=== PATIENT | male | born 1940 | race Caucasian/White ===

== ENCOUNTER 2020-12-29 07:26 | Emergency (ER) | payer OTHER, BC ==
[~2020-12-29] VITALS: Ht 185.4 cm; Wt 112.5 kg
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
[2020-12-29] MEDS ORDERED: SEROQUEL 25 MG25 M1 PO (07:30)
[2020-12-29] MEDS ORDERED: BUSPIRONE HCL10 MG PO (07:31)
[2020-12-29] MEDS ORDERED: FLORANEX TABLE1 EACH PO (07:32)
[2020-12-29] MEDS ORDERED: 3-DAY VAGINAL C21 GM TOP (07:32)
[2020-12-29] MEDS ORDERED: DULOXETINE HCL60 MG PO (07:32)
[2020-12-29] MEDS ORDERED: ELIDEL CREAM 1%30 G1 TOP ×2 (07:32→08:01)
[2020-12-29] MEDS ORDERED: NAMENDA 10 MG T10 MG PO (07:33)
[2020-12-29] MEDS ORDERED: MELATONIN5 MG SUBLING (07:33)
[2020-12-29] MEDS ORDERED: METOLAZONE 2.52.5 M1 PO (07:33)
[2020-12-29] MEDS ORDERED: TOPROL XL25 MG PO (07:34)
[2020-12-29] MEDS ORDERED: KLOR-CON 10 ER10 MEQ PO (07:35)
[2020-12-29] MEDS ORDERED: MIRALAX119 GM PO (07:35)
[2020-12-29] MEDS ORDERED: OMEPRAZOLE 20 M20 M1 PO (07:35)
[2020-12-29] MEDS ORDERED: OYSTER SHELL C500 MG PO (07:35)
[2020-12-29] MEDS ORDERED: FLOMAX0.4 MG PO (07:36)
[2020-12-29] MEDS ORDERED: SENNA8.6 MG PO (07:36)
[2020-12-29] MEDS ORDERED: SIMVASTATIN80 MG PO (07:36)
[2020-12-29] MEDS ORDERED: SEROQUEL 25 MG25 MG PO (07:36)
[2020-12-29] MEDS ORDERED: XARELTO20 MG PO (07:38)
[2020-12-29] MEDS ORDERED: TRAZODONE HCL50 MG PO (07:38)
[2020-12-29] MEDS ORDERED: TYLENOL325 MG PO (07:44)
[2020-12-29 07:53] LABS: ABSOLUTE NEUTROPHILS 4.4 thou/uL (1.4-8.2); BASOPHILS 0.6 % (0.0-2.0); EOSINOPHILS 6.3 % (0.0-3.0); HEMOGLOBIN 14.6 gm/dL (14.0-18.0); LYMPHOCYTES 20.7 % (24.0-44.0); MCH 28.9 pg (26.0-34.0); MCHC 33.2 g/dL (28.0-37.0); MONOCYTES 8.2 % (1.0-8.0); PLATELET COUNT 146 thou/uL (150-400); POLYS 64.2 % (36.0-66.0); RBC 5.05 mil/uL (4.50-6.00); RDW 13.2 % (10.5-14.5); WBC 6.9 thou/uL (4.0-11.0)
[2020-12-29 07:57] LABS: ANION GAP 6 mmol/L (7-16); BUN 17 mg/dL (7-18); CALCIUM 9.2 mg/dL (8.5-10.1); CHLORIDE 103 mmol/L (98-107); CO2 33 mmol/L (21-32); CREATININE 1.1 mg/dL (0.7-1.3); GLUCOSE 128 mg/dL (74-106); POTASSIUM 3.3 mmol/L (3.5-5.1); SODIUM 142 mmol/L (136-145)
[2020-12-29] MEDS ORDERED: ALPRAZOLAM 0.50.5 M1 PO (07:58)
[2020-12-29] MEDS ORDERED: ALPRAZOLAM1 MG PO (07:59)
[2020-12-29] MEDS ORDERED: VOLTAREN GEL 1100 G1 TOP (08:00)
[2020-12-29] MEDS ORDERED: MILK OF MA400 MG/5 M PO (08:00)
[2020-12-29] MEDS ORDERED: LOPERAMIDE2 MG PO (08:00)
[2020-12-29 08:04] LABS: URINE BILIRUBIN NEGATIVE (Negative); URINE BLOOD NEGATIVE (Negative); URINE CLARITY CLEAR; URINE COLOR YELLOW; URINE GLUCOSE-RANDOM* NEGATIVE (Negative); URINE KETONES NEGATIVE (Negative); URINE LEUKOCYTES-REFLEX NEGATIVE (Negative); URINE NITRITE-REFLEX NEGATIVE (Negative); URINE PROTEIN (DIPSTICK) NEGATIVE (Negative); URINE SPECIFIC GRAVITY 1.015 (1.005-1.035); URINE UROBILINOGEN 0.2 E.U./dl (0.2-1.0)
[2020-12-29 08:06] LABS: ALBUMIN 3.6 g/dL (3.4-5.0); SGOT 17 U/L (15-37); SGPT 21 U/L (30-65); TOTAL BILIRUBIN 0.7 mg/dL (0.2-1.0); TROPONIN-I <0.06 ng/mL (<0.06)
[2020-12-29 12:47] VITALS: BP 131/72
== END 2020-12-29 13:00 | disposition admitted as inpatient to this hospital (09) ==
LOC: ER 07:26
PROVIDERS: Emergency Medicine
DX: U07.1 COVID-19 (principal); F91.1 Conduct disorder, childhood-onset type; F03.90 Unspecified dementia, unspecified severity, without behavioral disturbance, psychotic disturbance, mood disturbance, and anxiety; Z79.899 Other long term (current) drug therapy

== ENCOUNTER 2020-12-29 13:09 | Inpatient (IN) | payer OTHER, BC ==
[~2020-12-29] VITALS: Ht 185.4 cm; Wt 108.5 kg
[~2020-12-29 13:09] MED LIST: 3-DAY VAGINAL C21 GM TOP; ALPRAZOLAM 0.50.5 M1 PO; ALPRAZOLAM1 MG PO; BUSPIRONE HCL10 MG PO; DULOXETINE HCL60 MG PO; ELIDEL CREAM 1%30 G1 TOP; FLOMAX0.4 MG PO; FLORANEX TABLE1 EACH PO; KLOR-CON 10 ER10 MEQ PO; LOPERAMIDE2 MG PO; MELATONIN5 MG SUBLING; METOLAZONE 2.52.5 M1 PO; MILK OF MA400 MG/5 M PO; MIRALAX119 GM PO; NAMENDA 10 MG T10 MG PO; OMEPRAZOLE 20 M20 M1 PO; OYSTER SHELL C500 MG PO; SENNA8.6 MG PO; SEROQUEL 25 MG25 M1 PO; SEROQUEL 25 MG25 MG PO; SIMVASTATIN80 MG PO; TOPROL XL25 MG PO; TRAZODONE HCL50 MG PO; TYLENOL325 MG PO; VOLTAREN GEL 1100 G1 TOP; XARELTO20 MG PO
[2020-12-29 13:30] VITALS: BP 134/76
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
[2020-12-29 19:55] VITALS: BP 120/78
[2020-12-29 21:05] VITALS: BP 120/78
[2020-12-29 21:33] VITALS: BP 120/78
--- NOTE | 2020-12-29 23:22 | NUR ---
2320 RESUMMED CARE FROM DAY SHIFT THIS EVENING PATIENT IN DAY ROOM SITTING QUIET. PATIENT ALERT ORIENTED TO SELF ONLY PATIENT LET ME DO ASSESSMENT THIS EVENING. PATIENTS ABDOMEN SOFT BOWEL SOUNDS PRESENT PATIENTS LUNGS CLEAR. PATIENT UNABLE TO ANSWER QUESTIONS ABOUT SI/HI/AH/VH AT PRESENT DUE TO COGNITIVE DO. PATIENT TOOK HIS MEDICATION CRUSHED IN APPLESAUCE, PATIENT TOOK MY HAND AND I TOOK PATIENT TO ROOM FOR BED. PATIENT CAME BACK TO DAY ROOM AND I PUT HIM IN A ADRIANNE CHAIR AND PUT HIS FEET UP AND PUT A BLANKET OVER HIM, PATIENT SLEPT IN DAY ROOM. PATIENT HAS NOT DISPLAYED AND BEHAVIORS ON THIS SHIFT. WILL CONTINUE TO MONITOR PATIENT FOR BEHAVIORS AND SAFETY.
--- NOTE | 2020-12-30 09:29 | NUR ---
FRANCISCO JAVIER contacted [facility] at [phone]. No answer on any lines. FRANCISCO JAVIER left a message for the director. SW team will continue to follow pt during his stay on this unit.
[2020-12-30 10:02] VITALS: BP 135/85
--- NOTE | 2020-12-30 10:04 | NUR ---
Nutrition: Pt admit to [facility] unit with major neurocognitive disorder with behavioral disturbance. Received new admission consult. PMH: advanced dementia, HLD, HTN, afib, GERD. Pt confused. Meds/labs reviewed. No weight hx however BMI 30, obesity class 1. K-3.3, replacing. Good intake with 95-100% of meals documented so far. Consider low nutrition risk.
--- NOTE | 2020-12-30 13:00 | NUR ---
Assumed pt care at 0700. pt was oriented to self. PT WAS CALM with care. unable to answer si/hi question due to cognitive disorder. During Assessment pt would not sit still. pt pace the unit with a steady gait pt took meds crushed with pudding, no difficulty noted. Had a bowel movement. AT time there is no sign of si/hi noted. no sign of acute distress or pain.pt have been incontinent twice. Will continue to monitor.
[2020-12-30 20:15] VITALS: BP 142/79
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
[2020-12-31 09:16] VITALS: BP 116/87
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
--- NOTE | 2020-12-31 15:36 | NUR ---
Alert and orientated to name only. Restless, regular, steady gait. Denies SI/HI. No speech/behavior suggestive of SI/HI. Directable. Confused speech. Participating in groups. Initially spit out meds when they were crushed, took whole with H2O without difficulty on second approach and subsequent med passes. Breath sounds clear. Reg HR auscultated. Color pink with brisk capillary refill and palpable peripheral pulses. +3 non pitting edema in lower extremities. Incontinent and continent of yellow urine per brief and toilet. Large,soft brown stool. Active bowel sounds over soft, rounded abdomen. Currently in day room with peers without s/o distress.
[2020-12-31 20:14] VITALS: BP 123/86
[2020-12-31 20:17] VITALS: BP 123/86
[2020-12-31 21:02] VITALS: BP 123/86
--- NOTE | 2020-12-31 23:33 | NUR ---
2330 RESUMMED CARE FROM OVERNIGHT SHIFT THIS EVENING, PATIENT IN DAY ROOM WALKING AROUND. PATIENT ALERT ORIENTED TO SELF ONLY PATIENT UNABLE TO TELL ME ABOUT SI/HI/AH/VH AT PRESENT. PATIENTS ABDOMEN SOFT BOWEL SOUNDS PRESENT PATIENT LUNGS CLEAR. PATIENT TOOK MEDICATION WITHOUT INCIDENCE NO BEHAVIORS THIS SHIFT. WILL CONTINUE TO MONITOR PATIENT FOR SAFETY AND BEHAVIORS.
[2021-01-01 05:36] LABS: CALCIUM 9.5 mg/dL (8.5-10.1); CREATININE 1.2 mg/dL (0.7-1.3); POTASSIUM 3.5 mmol/L (3.5-5.1)
--- NOTE | 2021-01-01 06:36 | NUR ---
0630 NEW ADMIT HERE FROM THE [facility] FOR HITTING STAFF, UPON ARRIVING ON THE UNIT; PATIENT CALM COOPERATIVE. ED STATES SHE WAS GIVEN ATIVAN 1 MG AT 0012 THIS AM FOR AGITATION. PATIENT HAS A HISTORY OF ALCOHOL ABUSE, HTN,SEIZURES AND ROTATOR CUFF REPAIR. PATIENTS ABDOMEN SOFT BOWEL SOUNDS PRESENT PATIENTS LUNGS CLEAR. PATIENT IS ACCEPTING OF THE ADMISSION AND DID SIGN HER PAPERWORK. PATIENT IS ALERT ORIENTED TIMES 2 WILL CONTINUE TO MONITOR PATIENT FOR SAFETY AND BEHAVIORS.
--- NOTE | 2021-01-01 10:57 | NUR ---
ASSUMED CARE AT 0700 THIS MORNING. PT. SITTING IN RECLINING CHAIR IN THE DINING ROOM. HE WAS SITTING QUIETLY UNTIL STAFF ATTEMPTED TO WORK WITH HIM. HE THEN GOT UP OUT OF THE CHAIR, WALKING AWAY. STAFF CRUSHED HIS MEDICATIONS AND GAVE THEM IN PUDDING. HE NEEDED A LOT OF PERSUASION TO TAKE THE MEDICATIONS. HE DID SO, THOUGH. HE THEN SEEMED TO CALM DOWN AND RELAX IN THE CHAIR THE MEDICATIONS TOOK EFFECT. HE ATE SOME OF HIS BREAKFAST AT THE TIME. RT ATTEMPTED TO TALK TO THE PT., BUT HE WAS NOT MAKING ANY SENSE, TALKING IN 1/2 SENTENCES AND WORD SALAD.
[2021-01-01 19:12] VITALS: BP 129/91
--- NOTE | 2021-01-02 04:31 | NUR ---
01-01-21 CARE TRANSFERRED 1900 OBSERVED PT WALKING HALLWAYS. PT AAOX1, VSS, RR EVEN AND NONLABORED ON RA. PT DENIES PAIN AND SI/HI ZERO, NO SELF HARM/HARMING OTHERS BEHAVIORS OBSERVED. HAVE OBSERVED PT HAVING POOR PHYSICIAL BARRIERS. PT PRESENTS CONFUSED, BUT HAS REMAINED CALM AND COOPERATIVE THROUGHOUT NURSING ASSESSMENT AND HAS BEEN EASILY REDIRECTED BUT NECESSARY OFTEN.
[2021-01-02 10:45] VITALS: BP 112/72
--- NOTE | 2021-01-02 10:50 | NUR ---
FRANCISCO JAVIER spoke with Kimberly the DON for [facility] at [phone] and provided to her a verbal update. Kimberly gave the fax number of [phone]. FRANCISCO JAVIER team faxed updates to [facility]. FRANCISCO JAVIER team will continue to follow pt during his stay on this unit.
[2021-01-02 11:45] VITALS: BP 112/72
--- NOTE | 2021-01-02 14:42 | NUR ---
SW team asked pt orientation questions. She answered all answers correctly except for what year it was and who is president; she believes Ifeanyi is still president. She also has delusions concerning Trump. SW team administerd a SLUMS assessment with pt. She scored a 16/30. FRANCISCO JAVIER team will continue to follow pt during her stay on this unit.
--- NOTE | 2021-01-03 03:46 | NUR ---
01-03-16 CARE TRANSFERRED 1900 OBSERVED PT WALKING HALLS, PT WANDERED INTO PT ROOM AND WAS GOING AFTER PT IN BED, RN BLOCKED AND CALLED FOR ASSISTANCE, WHILE PT WAS STRUGGLING TO GET AT PT SITTING IN HER BED. PT WAS TRYING TO THROW THIS LOOM STOP CHECKER OUT OF THE WAY, [facility] STAFF ARRIVED AND ASSISTED WITH GETTING PT OUT OF FEMALE PT ROOM; DIRECTED ONE STAFF MEMBER TO CALL SECURITY AND SECURITY ARRIVED. HCP CONTACTED AND ORDERS RECEIVED X1NOW, PT WAS ASSISTED INTO RECLINER BY SECURITY STAFF. LATER PT AAOX1, VSS, RR EVEN AND NONLABORED ON RA, PT HTN MEDICATION HELD R/T B/P 102/68 AND MEDICATION THAT ADMIN EARLIER. LATER PT BACK UP WANDERING HALLWAY, REDIRECTED TO BED, LATER NOTED PT RESTING IN BED WITH HEAD AT FOOT OF BED. LATER PT SITTING ON EDGE OF BED, PT WAS PLACED IN RECLINER AND BROUGHT TO DAY ROOM. LATER NOTED PT RESTING WITH EYES CLOSED, ZERO S/S OF ACUTE DISTRESS NOTED, PT WILL CONTINUE TO BE MONITOR PER [facility] PROTOCOL.
--- NOTE | 2021-01-03 13:55 | NUR ---
PATIENT WAS IN DAYROOM SITTING, ASLEEP THIS MORNING WHEN CARE ASSUMED. PATIENT DID WAKE UP FOR BREAKFAST, HAD A FEW BITES, TOOK ALL MEDS IN [place], WELL TOLERATED. PATIENT IS ALERT, FORGETFUL, CONFUSED, WANDERS, BUT REDIRECTABLE. PATIENT CONSUMMED ABOUT 75% OF LUNCH WITH CUE FROM STAFF. PATIENT REQUIRES ASSIST OF STAFF TO COMPLETE ADL, INCLUDING FEEDING. INCONTINENT CARE PROVIDED PER STAFF. PATIENT DENIES SUICIDAL IDEATION, NOT ABLE TO APPROPRIATELY RESPOND TO FURTHER ASSESSMENT QUESTIONS DUE TO COGNITIVE IMPAIREMENT. AFFECT IS FLAT/BLUNTED, MOOD IS CALM. NO AGGRESSION OR AGITATION NOTED AT THIS TIME, WILL CONTINUE TO REDIRECT, AND MONITOR FOR SAFETY.
[2021-01-03 19:49] VITALS: BP 142/78
--- NOTE | 2021-01-04 04:05 | NUR ---
01-04-21 CARE TRANSFERRED 1914 OBSERVED PT WALKING AROUND DAY ROOM. PT AAOX1, VSS, RR EVEN AND NONLABORED ON RA, PT DENIES PAIN. NO SELF HARM BEHAVIORS NOTED, AND NO HARMING OTHERS, PT HAS POOR PHYSICAL BOUNDIES. PT EASILY REDIRECTED. ZERO S/S OF ACUTE DISTRESS NOTED, PT WILL CONTINUE TO BE MONITOR PER [facility] PROTOCOL.
[2021-01-04 09:50] VITALS: BP 141/85
--- NOTE | 2021-01-04 11:54 | NUR ---
PATIENT DECLINE EKG, LAYED DOWN, THEN BECAME COMBATIVE, STAFF STATES WILL BE BACK TO SEE IF ABLE TO DO IT LATER.
--- NOTE | 2021-01-05 02:22 | NUR ---
Assumed care of pt at 1900. Pt up in dining room at start of shift. Pt is ambulatory. Pt is A&O to self. Pt wanders and has poor personal space boundaries at times, but is redirectable. Pt resistive and refused HS vitals to be taken. Pt complaint with HS scheduled medications and took them crushed in pudding. Pt is incontinent and wears brief. Pt needs assistance x 1 with ADLs & was redirected x 1 from urinating on floor in dining room. Pt last BM was on 01.04.21. Pt denied any pain and shows no physical s/s of distress. Pt is on 12 min checks for safety. Will continue to monitor for any changes in behavior/mood.
[2021-01-05 09:13] VITALS: BP 122/70
[2021-01-05 09:36] VITALS: BP 122/70
--- NOTE | 2021-01-05 10:17 | NUR ---
1010 RESUMMED CARE FROM OVERNIGHT SHIFT THIS AM, PATIENT IN DAY ROOM QUIET IN CARE. PATIENT ATE BREAKFAST SPIT SOME OF MEDICATION OUT, PATIENT ALERT ORIENTED TO SELF ONLY. PATIENT HAS NEURO COGNITIVE DO AND CANNOT TELL ME ABOUT SI/HI/AH/VH AT PRESENT. PATIENTS ABDOMEN SOFT BOWEL SOUNDS PRESENT PATIENTS LUNGS CLEAR. PATIENT IS VERY INTRUSIVE WITH OTHER PATIENT TOUCHING THEM AND IN OTHER PATIENTS FACE. I CAME AND TOOK PATIENTS HAND AND ASKED HIM TO SIT ON THE COUCH. PATIENT IS REDIRECTABLE WILL CONTINUE TO MONITOR PATIENT FOR SAFETY AND BEHAVIORS.
--- NOTE | 2021-01-05 11:09 | NUR ---
SW faxed updates for pt to [facility]. SW reviewed pt chart and saw that he is still having issues with being redirected when he is intrusive with female peers. SW team will continue to follow pt during his stay on this unit.
--- NOTE | 2021-01-05 14:04 | NUR ---
RT Progress Note- Pt has been present in the milieu but unable to productively engage d/t cognition and poor attention/concentration. Pt wanders the unit much of the day and is only able to remain in one place for a short amount of time before wandering again. Pt has also displayed poor social boundaries when interacting with other pts. HOUSING GRANT ANALYST will continue to encourage Martin's participation and look for improvement in attention.
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
[2021-01-06 09:26] VITALS: BP 136/86
[2021-01-06 10:56] VITALS: BP 136/86
--- NOTE | 2021-01-06 12:02 | NUR ---
FRANCISCO JAVIER and Dr. Madden spoke with pt's Jeri and provided to her an update on pt. SW team will continue to follow pt during his stay on this unit.
--- NOTE | 2021-01-06 12:16 | NUR ---
1200 RESUMMED CARE FROM OVERNIGHT SHIFT THIS AM, PATIENT IN DAYROOM ASLEEP. PATIENT HAD TWO PRN'S LAST NIGHT FOR AGGRESSION; PATIENT UNABLE TO TELL ME ABOUT SI/HI/AH/VH AT PRESENT. PATIENTS ABDOMEN SOFT BOWEL SOUNDS PRESENT PATIENTS LUNGS CLEAR. PATIENT CALM SLEEPY LYING IN ADRIANNE CHAIR QUIET SLEEPING OFF AND ON. PATIENT ORIENTED TO SELF ONLY WILL CONTINUE YO MONITOR PATIENT FOR SAFETY AND BEHAVIORS.
[2021-01-06 20:35] VITALS: BP 142/91
--- NOTE | 2021-01-07 06:43 | NUR ---
PT LESS AGITATED THIS SHIFT RESTED WELL AFTER TAKING MEDICATION , PT SLEPT WELL THROUGHOUT ROUNDING . PT REMAIN CONFUSED WITH RAMBLING SPEECH.
[2021-01-07 08:25] VITALS: BP 123/74
--- NOTE | 2021-01-07 09:35 | NUR ---
0700 ASSUMED CARE OF PATIENT, PATIENT NOTED IN DAYROOM WANDERING AT THAT TIME. PATIENTTAKES FEW BITES OF BREAKFAST WITH HELP. MEDICATIONS GIVEN CRUSHED IN APPLESAUCE WITHOUT DIFFICULTY. SLEEPS OFF AND ON IN GERICHAIR. PATIENT CALM AND QUIEST AT THIS TIME. VS BP-123/74 P-103 R-15 T-97.0 MICHAEL- 96%.
[2021-01-07 21:50] VITALS: BP 123/74
--- NOTE | 2021-01-08 01:47 | NUR ---
Assumed care on 01/07/21 @ 1900, ambulating ad michael throughout the mileu, touches peers and staff, redirectable, but constantly walking up to peers and touching them. HRRR, Lungs CTA, ABD N bowel sounds with a round abdomen. Takes meds crushed in pudding and ice cream. Sleeping in hernando chair in the day room. Incontinent of bladder, incontinent care provided when needed. Will continue to assess for safety and comfort.
[2021-01-08 09:44] VITALS: BP 127/97
--- NOTE | 2021-01-08 10:14 | NUR ---
INTRUSIVE WITH PEERS THIS AM AND DIFFICULT TO REDIRECT. INCREASED AGITATION AND INTRUSIVE BEHAVIOR AT MEALTIME-APPROACHING PEERS AT BREAKFAST TABLE AND GRABBING FOOD AND BEVERAGES OFF OF THERE TRAYS-REFUSING TO GIVE OTHERS BELONGINGS BACK TO STAFF AND BECOMES COMBATIVE WITH CENTRAL SUPPLY WORKER. GAIT IS STEADY WITHOUT ASSISITVE DEVICES. ORIENTED TO NAME ONLY. CONVERSATION INCOHERENT-SPEECH RAMBLING AND DISORGANIZED. OVERALL MOOD/AFFECT IS IRRITABLE/FRUSTRATED WHICH INCREASES STIMULI IN MILLEU INCREASES
--- NOTE | 2021-01-08 15:55 | NUR ---
SW faxed updates to nursing facility.
--- NOTE | 2021-01-09 04:24 | NUR ---
Assumed care for pt at 1900. Pt up in dining room and walking about the unit at time of shift change. Pt had to be redirected several times during earlier part of evening, as he kept picking up and taking other pt's belongings, snacks/drinks, and roaming into other pt rooms. Pt refused for HS vitals to be taken. Pt took scheduled medications crushed in vanilla ice cream, although he was resistive. Pt alert to self. Pt last BM was 01/08/21. Pt is incontient of bladder. Pt cooperative with HS nursing assessment, but unable to answer most simple and yes/no questions. Pt did deny having any pain at time of assessment. Pt is ambulatory and is on every 12 minute checks/rounds for safety. Pt rested during night in dining room in [facility] and appeared to be sleeping. Upon assessment it was noted that pts right ankle was swollen. Pt feet where elevated to help to try to reduce any dependent edema. Pt edema is +2. Will continue to monitor for any changes in mood/depression.
--- NOTE | 2021-01-09 08:49 | NUR ---
Nutrition: F/u on pt w/ major neurocognitive disorder w/ hx of dementia. Wt up 9 lb from admit, BMI indicates obesity. Intake avg 75% or more. No recent metabolic labs. Lasix, potassium and other meds reviewed. Continues at low nutrition risk.
[2021-01-09 10:14] VITALS: BP 100/59
[2021-01-09 11:47] VITALS: BP 100/59
--- NOTE | 2021-01-09 14:07 | NUR ---
1405 RESUMMED CARE FROM OVERNIGHT SHIFT THIS AM, PATIENT IN DAY ROOM WALKING AROUND. PATIENT UNABLE TO TELL ME ABOUT SI/HI/AH/VH AT PRESENT DUE TO COGNITIVE DO. PATIENT IS ALERT ORIENTED TO SELF ONLY PATIENT CALM HAS SOME INTRUSIVE BEHAVIORS. PATIENT LIKES TO TOUCH ON OTHER PATIENTS, PATIENTS ABDOMEN SOFT BOWEL SOUNDS PRESENT. PATIENTS LUNGS IS CLEAR PATIENT IS CONFUSED WILL CONTINUE TO MONITOR PATIENT FOR SAFETY AND BEHAVIORS.
--- NOTE | 2021-01-10 01:47 | NUR ---
ASSESSMENT: PT IS ALERT AND ORIENT TIMES ONE. ROAMS AROUND UNIT WITHOUT PURPOSE. IMPULSIVE, DOESN'T FOLLOW COMMANDS WELL. PLEASANT AND TRIES TO COMPLY SOME TIMES. VSS, AFEBRILE. INCONT TO BLADDER. IN ADRIANNE CHAIR WITH LAP YAMEL. NO AGGRESSION DISPLAYED THIS SHIFT. PT INDICATED THAT HIS FEET HURT, LEFT FOOT SWOLLEN AND READ. GREAT TOE NAIL ELONGATED. SLOW PROGRESS TOWARDS DC GOALS. WILL CONTINUE TO MONITOR.
[2021-01-10 05:37] LABS: HEMATOCRIT 40.4 % (42.0-52.0); HEMOGLOBIN 13.7 gm/dL (14.0-18.0); MCH 28.8 pg (26.0-34.0); MCHC 33.8 g/dL (28.0-37.0); MCV 85.2 fL (80.0-100.0); RBC 4.74 mil/uL (4.50-6.00); RDW 13.2 % (10.5-14.5); WBC 9.3 thou/uL (4.0-11.0)
[2021-01-10 06:20] LABS: CALCIUM 9.1 mg/dL (8.5-10.1); POTASSIUM 3.1 mmol/L (3.5-5.1)
[2021-01-10 07:55] VITALS: BP 117/69
--- NOTE | 2021-01-10 09:22 | NUR ---
PATIENT APPROACHED WITH MORNING MEDICATIONS CRUSHED IN APPLESAUCE. REFUSED MEDICATIONS AFTER SEVERAL ATTEMPTS AT ENCOURAGEMENT. WILL CONTINUE TO TRY TO ENTICE TO TAKE.
--- NOTE | 2021-01-10 10:42 | NUR ---
FRANCISCO JAVIER contacted Kimberly (DON) and Jesus Alberto (president) of [facility] to provide an update on pt. No answer. FRANCISCO JAVIER left a msg on both voice mails. SW team will continue to follow pt during his stay on this unit.
--- NOTE | 2021-01-11 02:40 | NUR ---
ASSESSMENT: PT WAS SLOWER PACED THIS EVENING POST RECEIVING PRN SEDATIVES. PT WANTS TO DO EVERYTHING HIMSELF. FREQUENT URINATION, INCONT. SLEPT IN THE ADRIANNE CHAIR ALL NIGHT. VSS, AFEBRILE. DENIES PAIN. SLOW PROGRESS TOWARDS DC GOALS, WILL CONTINUE TO MONITOR.
[2021-01-11 09:04] VITALS: BP 119/64
--- NOTE | 2021-01-11 11:47 | NUR ---
FRANCISCO JAVIER faxed updates to pt to [facility]. SW team will continue to follow pt during his stay on this unit.
--- NOTE | 2021-01-11 17:59 | NUR ---
0700 ASSUMED CARE OF PATIENT. PATIENT UP AMB WITH STEADY GAIT IN BALTAZAR. PATIENT FALLS ASLEEP OFF AND ON IN CHAIR. ASSISTED WITH BREAKFAST. MEDICATIONS GIVEN CRUSHED IN ICE CREAM WITHOUT DIFFICULTY. PATIENT ORIENTED TO SELF. BS ACTIVE. ASSISTED TO BR, PATIENT INCONTINENT. AT TIMES PATIENT REMOVES SHIRT AND WILL NOT LEAVE ON. MUMBLES AT TIMES WITH WORD SALAD. PATIENT EASILY REDIRECTABLE. WANDERS IN OTHER ROOMS AT TIMES. WILL CONTINUE TO OBSERVE
--- NOTE | 2021-01-11 23:56 | NUR ---
PT ASSESSMENT COMPLETED AND VSS. MEDS GIVEN A ORDERED CRUSHED IN ICE CREAM. WELL TOLERATED. UP WALKING AROUND IN THE DAY ROOM. STEADY. PT TIRED AND SLEEPING IN CHAIR IN THE DAY ROOM. OBSERVED FREQUENTLY. INCONTINENT. PT SPEECH HARD TO UNDERSTAND. PT MUMBLES. PT CALM AND SLEEPING THIS EVENING. WILL CONTINUE TO MONITOR FREQUENTLY.
[2021-01-12 09:16] VITALS: BP 124/66
[2021-01-12 09:36] VITALS: BP 124/66
--- NOTE | 2021-01-12 12:34 | NUR ---
1230 RESUMMED CARE FROM OVERNIGHT SHIFT THIS AM, PATIENT IN DAY ROOM QUIET IN ADRIANNE CHAIR. PATIENT ALERT TO SELF ONLY PATIENT TOOK MEDICATION CRUSHED IN ICE CREAM. PATIENT IS UNABLE TO TELL ME ABOUT SI/HI/AH/VH AT PRESENT DUE TO COGNITIVE DISORDER. PATIENTS ABDOMEN SOFT BOWEL SOUNDS PRESENT PATIENTS LUNGS CLEAR. PATIENT WANDERS AROUND THE UNIT POOR BOUNDARIES GOES IN PEOPLES ROOM AND TAKES THINGS OUT OF ROOM. PATIENT TOUCHES OTHER PATIENTS HE IS MOST TIMES REDIRECTABLE. WILL CONTINUE TO MONITOR PATIENT FOR SAFETY AND BEHAVIORS.
--- NOTE | 2021-01-12 12:37 | NUR ---
RT Progress Note- Martin's participation in both the milieu and recreation therapy groups is very minimal at this time. Martin continues to wander about the unit and is very difficult to redirect to a sitting position in group. He has been present in few groups when seated directly next to nursing staff who assist him in remaining focused. When present he is passive in participation. GREENBELT will continue to encourage his participation.
[2021-01-12 19:15] VITALS: BP 119/63
[2021-01-12 20:18] VITALS: BP 119/63
--- NOTE | 2021-01-12 20:56 | NUR ---
2044 RESUMMED CARE FROM DAY SHIFT THIS PM, PATIENT IN DAY ROOM WANDERING AROUND. PATIENT ALERT ORIENTED TO SELF PATIENT STILL HAS POOR BOUNDARIES GOING IN PATIENTS ROOMS. PATIENT ALSO TOUCHES OTHER PATIENTS AND HAS TO BE REDIRECTED TO NOT TOUCH OTHER PATIENTS. PATIENT IS UNABLE TO TELL ME ABOUT SI/HI/AH/VH AT PRESENT DUE TO DEMENTIA. PATIENTS ABDOMEN SOFT BOWEL SOUNDS PRESENT, PATIENTS LUNGS CLEAR. PATIENT TOOK MEDICATION CRUSHED IN PUDDING WITHOUT INCIDENCE. WILL CONTINUE TO MONITOR PATIENT FOR SAFETY AND BEHAVIORS.
--- NOTE | 2021-01-13 03:25 | NUR ---
ASSESSMENT: PT IN ADRIANNE CHAIR DURING THIS SHIFT EXCEPT TO USE THE BR IN ROOM. PT SLEPT IN ADRIANNE CHAIR IN THE DAY ROOM. VSS, AFEBRILE. DENIES PAIN. DID NOT WONDER AROUND UNIT THUS FAR. DENIES PAIN. SWELLING DECREASING IN TOMY FEET. SLOW PROGRESS TOWARDS DC GOALS. WILL CONTINUE TO MONITOR.
--- NOTE | 2021-01-13 09:47 | NUR ---
HAS BEEN VISIBLE IN DAYROOM PACING AND WALKING NON-STOP SO FAR THIS AM-ABLE TO BE COAXED TO SIT BRIEFLY TO EAT BUT IS HARD TO REDIRECT DOES NOT FOLLOW VERBAL COMMANDS-WILL OCCASSIONALY FOLLOW GESTURES OR LIGHT TOUCH ON ARM BUT WILL AT TIMES HAVE INCREASED AGITATION WITH PHYSICAL REDIRECT. WILL SPEAK TO STAFF/PEERS BUT CONVERSATION IS FRAGMENTED/INCOHERENT. IS NOTED TO HAVE FACIAL GRIMACING AND WINCING FREQYENTLY RUBBING RIGHT KNEE/LEG-FEETT WITH HARD TENSE NONPITTING PEDAL EDEMA NOTED. RESISTIVE WITH ELEVATING FEET OR LYING DOWN ON BED DESPITE MULTIPLE PROMPTS. INTRUSIVE WITH PEERS AND STAFF GRABBING OTHERS FOOD/BEVARGES AND CONSUMING THEM-ATTEMPTING TO GRAB ITEMS OFF OF NURSING PORTABLE COMPUTER. RUBBING THE BACK AND SHOULDERS OF FEMALE PATIENTS DESPITE MULTIPLE REQUESTS TO NOT TOUCH ANYONE. GAIT SLOW BUT STEADY-
[2021-01-13 09:58] VITALS: BP 107/67
--- NOTE | 2021-01-13 14:04 | NUR ---
FRANCISCO JAVIER contacted Kimberly with [facility] to arrange d/c for pt on . No answer. FRANCISCO JAVIER left a msg. SW team will continue to follow pt during his stay on this unit.
[2021-01-13 19:30] VITALS: BP 122/76
--- NOTE | 2021-01-13 21:38 | NUR ---
Assumed care on 01/13/21 @ 1900, ambulating throughout the mileu. Took meds crushed in ice cream. ambulates with a somewhat steady gait. A&Ox 1 only. Confusion noted. Will continue to monitor for safety and comfort as per unit protocol.
[2021-01-13 22:35] VITALS: BP 122/76
[2021-01-14 09:09] VITALS: BP 101/60
[2021-01-14 09:46] VITALS: BP 101/60
--- NOTE | 2021-01-14 11:42 | NUR ---
1140 RESUMMED CARE FROM OVERNIGHT SHIFT THIS AM, PATIENT IN DAY ROOM QUIET. PATIENT ALERT ORIENTED TO SELF ONLY PATIENT CALM COOPERATIVE EASY TO REDIRECT. PATIENTS ABDOMEN SOFT BOWEL SOUNDS PRESENT PATIENTS LUNGS CLEAR; PATIENT UNABLE TO TELL ME ABOUT SI/HI/AH/VH AT PRESENT. PATIENT HAS DEMENTIA AND IS HAS CONFUSION. WILL CONTINUE TO MONITOR PATIENT FOR SAFETY AND BEHAVIORS.
[2021-01-14 20:04] VITALS: BP 130/87
[2021-01-14 20:05] VITALS: BP 130/87
[2021-01-14 20:07] VITALS: BP 130/87
[2021-01-14 21:45] VITALS: BP 130/87
--- NOTE | 2021-01-14 22:41 | NUR ---
Assumed care on 01/14/21 @ 1900, ambulating through the mileu. Inserts himself in other residents personal space, touching people and their personal possessions and food. Redirectable, however must be constantly supervised and redirected for his safety and the safety of patients and staff in the [facility]. Accepted meds crushed in ice cream only if handed the cup of ice cream and he fed himself. Agitated with redirection and given an IM of [place] @ 2130. Allowed himself to be seated in a hernando chair for about 2 hours, then got out of the chair and ambulated around the day room handling blankets, furniture and touching the people who were still awake. Will continue to monitor as per unit protocol.
[2021-01-15 06:08] LABS: HEMATOCRIT 40.1 % (42.0-52.0); HEMOGLOBIN 13.8 gm/dL (14.0-18.0); MCH 29.5 pg (26.0-34.0); MCHC 34.4 g/dL (28.0-37.0); MCV 85.6 fL (80.0-100.0); RBC 4.69 mil/uL (4.50-6.00); RDW 13.2 % (10.5-14.5); WBC 7.5 thou/uL (4.0-11.0)
[2021-01-15 06:27] LABS: CALCIUM 9.5 mg/dL (8.5-10.1); CREATININE 1.1 mg/dL (0.7-1.3); MAGNESIUM 1.8 mg/dL (1.8-2.4); POTASSIUM 3.3 mmol/L (3.5-5.1)
[2021-01-15 08:18] VITALS: BP 109/78
--- NOTE | 2021-01-15 10:40 | NUR ---
DID ASSIST IN FEEDING SELF BREAKFAST AT APPROX 1015-MORE AWAKE/ALERT/TALKATIVE AT THIS TIME- ASSISTED TO BATHROOM AND COMPLIENT WITH INCONTINENT CARE-CONVERSATION WORD SALAD WITH ONLY OCCASSIONAL COHERENT VERBALIZATION. DOES APPEAR CALM/RELAXED-SPONTANOUES SMILING. NO NOTED S/S OF OR REPORTED PAIN/DISCPOMFORT. CONTINUES TO BE IMPULSIVE ATTEMPTING TO GET UP ON OWN-HIGH FALLS RISK
[2021-01-15 20:00] VITALS: BP 138/79
[2021-01-16 00:25] VITALS: BP 113/78
--- NOTE | 2021-01-16 02:36 | NUR ---
ASSESSMENT: PT REMAIN ALERT AND ORIENT TIMES ONE. PT WAS DROWSY TONIGHT AND SLEPT MOST OF THE SHIFT IN THE CHAIR. VSS, AFEBRILE. NO PRN'S WERE GIVEN. DENIES PAIN. UNABLE TO VOICE DENIAL OF SI/HI. NOT INTRUSIVE TONIGHT WHEN AMBULATING. INCONT. SLOW PROGRESS TOWARDS DC GOALS. WILL CONTINUE TO MONITOR.
--- NOTE | 2021-01-16 10:40 | NUR ---
Nutrition F/u: continues w/ confusion, dementia, needs redirection. Wt stable. Intake somewhat more variable recently but avg past several days 75% or more. BUN high, no recent albumin. Lasix and other meds reviewed. Continues at low risk.
--- NOTE | 2021-01-16 11:13 | NUR ---
SW team faxed updates to [facility] for pt. SW team will continue to follow pt during his stay on this unit.
--- NOTE | 2021-01-16 19:20 | NUR ---
AMB WITH STEADY GAIT PACING IN BALTAZAR. CONTINUES TO REMOVE SHIRT OFF AND ON THROUGHOUT DAY. EASILY REDIRECTABLE. MEDICATIONS TAKEN CRUSHED IN ICE CREAM. LS CLEAR, BS ACTIVE. SLEPT OFF AND ON IN CHAIR.
[2021-01-16 19:50] VITALS: BP 138/79
--- NOTE | 2021-01-17 03:31 | NUR ---
PATIENT WAS UP WALKING AROUND IN DINING ROOM THIS EVENING WITHOUT A SHIRT. DAYSHIFT SLITTER AND REWINDER MACHINE OPERATOR'S WHEN ASKED SAID HE WOULDN'T KEEP ONE ON. EVENTUALLY, PATIENT ALLOWED SLITTER AND REWINDER MACHINE OPERATOR TO PUT A GOWN ON HIM. HE WANDERED DOWN THE BALTAZAR TO THE LAUNDRY ROOM AND WALKED IN. APPARENTLY, THE DOOR DID NOT TOTALLY LATCH AFTER LAST PERSON LEFT. REDIRECTED PATIENT TO THE DINING ROOM TO GIVE HIM HIS ICE CREAM WITH HIS MEDS CRUSHED IN IT. PATIENT SAT AND ATE ALL THE ICECREAM AND FELL ASLEEP SHORTLY AFTER, AFTER WALKING TO ANOTHER CHAIR AND SITTING DOWN TO DOZE OFF. PATIENT WAS ASSISTED TO HIS ROOM AND INCONTINENCE CARES DOES DONE AND PATIENT PLACED IN BED. PATIENT HAS BEEN CALM, COOPERATIVE AND EASILY REDIRECTED. HIS BED IS IN LOW POSITION AND BED ALARM IS ON. WILL CONTINUE TO MONITOR.
[2021-01-17 05:52] LABS: CALCIUM 9.6 mg/dL (8.5-10.1); CREATININE 1.3 mg/dL (0.7-1.3); POTASSIUM 3.5 mmol/L (3.5-5.1)
--- NOTE | 2021-01-17 10:07 | NUR ---
0700 ASSUMED CARE OF PATIENT, PATIENT UP AMB IN BALTAZAR AND DAYROOM WITH STEADY GAIT. 0725 OXIDE FURNACE TENDER NOTIFIED OF PATIENT FALLING IN DAYROOM. VS OBTAINED BP- 154/94 P- 93 R-18 T- 97.4 SATS 81%. PATIENT GRABS HEAD AND THOUGHT TO HAVE HIT HIS HEAD IN THE FALL. PATIENT UNABLE TO TELL OXIDE FURNACE TENDER WHAT HAPPENED. PATIENT ALERT AND CONFUSED. PATIENT ASSISTED UP X3 ASSIST WITH USE OF GAIT BELT TO ADRIANNE CHAIR. CHAIR ALRM IN PLACE AND LAB YAMEL FASTENED IN FRONT. NO INJURY TO PATIENT NOTED. DR MAXWELL NOTIFIED VIA PHONE, ORDER FOR CHEST XRAY OBTAINED. PATIENT SATS RECHECKED 83%. NO RESP DISTRESS NOTICED, PATIENT RESPONDS TO NAME. PATIENT ATE 90% OF BREAKFAST UNASSISTED. MEDICATION GIVEN CRUSHED IN ICE CREAM WITHOUT DIFFICULTY. PER VIDEO PATIENT ATTEMPTED TO SIT IN CHAIR WITH NO CHAIR BEHIND HIM. VIDEO SHOWS PATIENT DID NOT HIT HEAD. PATIENT SLEEPS IN CHAIR OFF AND ON. 0835 VS RECHECKED 1 HR POST FALL- BP- 104/65 P-89 R- 18 T- 97.8 SATS- 97-98%. NO RESPIRATORY DISTRESS NOTED. DR MAXWELL HERE TO SEE PATIENT. DR IVAN NOTIFIED OF FALL. ORDER FOR HIGH FALL RISK OBTAINED. PATIENT SLEEPING AT THIS TIME. WILL CONTINUE TO OBSERVE
--- NOTE | 2021-01-17 14:54 | NUR ---
PATIENT SITTING IN GERICHAIR QUIETLY WITH LAP YAMEL FASTENED IN FRONT. MEDICATION CRUSHED IN ICE CREAM. PATIENT OBSERVED CENTER MACHINE SET UP OPERATOR APPROCHING WITH ICE CREAM. PATIENT RAISES ARMS AND STATES "OH BOY". PATIENT EATS ALL OF ICE CREAM.
[2021-01-17 18:57] VITALS: BP 106/52
--- NOTE | 2021-01-17 19:44 | NUR ---
Assumed care on 01/17/21 @ 1900, seated in a hernando chair, cooperated with assessment, HRRR, Lngs CTA, ABD N x 4Q. chair alarm under patient. will continue to monitor as per u nit protocol for safty and comfort.
[2021-01-17 22:20] VITALS: BP 106/52
[2021-01-18 09:42] VITALS: BP 105/72
--- NOTE | 2021-01-18 11:54 | NUR ---
FRANCISCO JAVIER faxed updates for pt to [facility]. FRANCISCO JAVIER contacted Kimberly with [facility] and arranged d/c for 01/20 @11am. She asked that pt has a covid test. She said that for now pt will d/c to [address] [place] [address], but that she may move him to a unit with less females. These female residents also are very calm. She said if so she will call SW back. She also asked SW to arrange transportation. FRANCISCO JAVIER contacted [employer] and arranged transportation for pt. Trip # [id number]. FRANCISCO JAVIER team will continue to follow pt during his stay on this unit.
--- NOTE | 2021-01-18 12:02 | NUR ---
HAS BEEN SITTING QUIETLY IN CHAIR THIS AM-WILL OCCASSIONALLY ATTEMPT TO GET UP ON OWN -BRIEF EPISODES OF RESTLESSNESS BUT DOES RESPOND TO SUPPPORT AND INTERVENTIONS FROM STAFF INCLUDING TOILETING,AMBULATING ETC. RESISITVE WITH INCONTINENT CARE REQUIRING ASSIST OF THREE TO CHANGE BRIEF. GAIT REMAINS UNSTEADY AND IS HIGH FALLS RISK.TAKES MEDS CRUSHED IN ICE CREAM .CONVERSATION REMAINS FRAGMENTED/INCOHERENT.
[2021-01-18 18:49] VITALS: BP 133/82
--- NOTE | 2021-01-19 02:42 | NUR ---
01-18-21 CARE TRANSFERRED 1899 OBSERVED PT SITTING IN RECLINER IN DAY ROOM WITH FEET ELEVATED. LATER PT AAOX1, VSS, RR EVEN AND NONLABORED ON RA. PT HAS DIFFICULTIES ARTICULATING THOUGHTS INTO WORDS, PLEASANTLY CONFUSED. NO S/S OF PAIN NOTED. OBSERVED NO SI/HI BEHAVIORS. PT HAS BEEN CALM AND COOPERATIVE THROUGHOUT NURSING ASSESSMENT. DURING MEDICATION ADMIN PT HAD NO DIFFICULTIES TAKING CRUSHED IN ICE CREAM. LATER PT WAS ASSISTED WITH A CHANGE OF BRIEF WITH NO DIFFICULTIES, PT CONTINUES TO REMAIN CALM. ZERO S/S OF ACUTE DISTRESS NOTED, PT WILL CONTINUE TO BE MONITOR PER [facility].
[2021-01-19 07:30] VITALS: BP 111/73
--- NOTE | 2021-01-19 11:58 | NUR ---
HAS BEEN VISIBLE IN DAYROOM SITTING IN GERICHAIR-LEGS ELEVATED WHILE NOT EATING D/T 2-3 PLUS PEDAL EDEMA BILATERALLY-HARD TNSE [id number] FREQUENTLY PUT FOOT OF RECLINER DOWN AND ATTEMPT TO GET UP ON OWN-MINIMAL RESPONSE TO VERBAL QUEING AND REDIRECT. CONVERSATION DISORGANIZED AND OFTEN TIMES INCOHERENT-FRAGMENTED. REMAINS HIGH FALLS RISK AND DOES REQUIRE LAP YAMEL,CHAIR ALARM AND Q 12 MINUTE CHECKS D/T IMPULSIVE BEHAVIOR,RESTLESSNESS AND MULTIPLE ATTEMPTS TO WALK ON OWN. INCONT CARE PROVIDED Q 2 HOURS AND REQUIRES ASSIST OF 2 STAFF D/T RESISTANCE. NO SKIN BREAKDOWN NOTED-BARRIER CREAM APPLIED FOR SOME MILD REDNESS TO SCROTUM. APPETITE IS GOOD AND TAKES PO FLUIDS WELL. MEDS CRUSHED IN ICE CREAM-AMBUALTED SHORT DISTANCE IN HALLWAY THIS AM REMAINS MILDLY ATAXIC.
--- NOTE | 2021-01-19 16:41 | NUR ---
SW received a call from [place] with [facility] stating that she needs to change pt's destination address to [address], [place], [place] as this is his new address; there are less female residents who live there. SW contacted [facility] and updated pt's destination address. SW team will continue to follow pt during his stay on this unit.
[2021-01-19 19:49] VITALS: BP 123/79
--- NOTE | 2021-01-20 02:57 | NUR ---
PT CARE ASSUMED WITH PT AMBULATING IN THE HALLWAY AT 1900.PT REFUSED TO TAKE MEDICATION AND WAS IN THE GETRIC CHAIR TILL THIS POINT SLEEPING IN THE ACTIVITY ROOM.PT APPEARED TO BE IN NO ACUTE DISTRESS.WILL CONTINUE TO MONITOR
[2021-01-20 08:37] VITALS: BP 130/73
[2021-01-20] MEDS ORDERED: METOPROLOL TART25 MG PO (08:39)
[2021-01-20] MEDS ORDERED: TRAZODONE HCL100 MG PO (08:39)
[2021-01-20] MEDS ORDERED: POTASSIUM CITRA5 MEQ PO (08:40)
[2021-01-20] MEDS ORDERED: CHLORPROMAZINE100 MG PO (08:40)
[2021-01-20] MEDS ORDERED: LASIX 20 MG TAB20 MG PO (08:41)
[2021-01-20] MEDS ORDERED: MAGNESIUM400 MG PO (08:42)
[2021-01-20] MEDS ORDERED: FINASTERIDE5 MG PO (08:42)
[2021-01-20] MEDS ORDERED: ALLOPURINOL 10100 M2 PO (08:43)
--- NOTE | 2021-01-20 09:48 | NUR ---
Assumed pt care at 0700. oriented to self. Assessments completed, vss. took meds crushed in ice cream, no difficulty noted. no sign of acute distress noted upon assessments, no c/o pain. unable to answer si/hi due to dementia. there is no sign of si/hi noted. At this time pt is in the day room relaxing. will continue to monitor.
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
== END 2021-01-20 11:30 | DRG 57 ==
LOC: SBH 13:09
PROVIDERS: Internal Medicine; Psychiatry & Neurology Psychiatry; ADMIT Psychiatry & Neurology Psychiatry; ATTEND Psychiatry & Neurology Psychiatry
DX: G30.9 Alzheimer's disease, unspecified (principal); F01.51 Vascular dementia, unspecified severity, with behavioral disturbance; F02.81 Dementia in other diseases classified elsewhere, unspecified severity, with behavioral disturbance; E66.9 Obesity, unspecified; I10 Essential (primary) hypertension; E78.5 Hyperlipidemia, unspecified; I48.91 Unspecified atrial fibrillation; N40.0 Benign prostatic hyperplasia without lower urinary tract symptoms; M79.89 Other specified soft tissue disorders; E87.6 Hypokalemia; K21.9 Gastro-esophageal reflux disease without esophagitis; R35.0 Frequency of micturition; Z66 Do not resuscitate; Z20.822 Contact with and (suspected) exposure to COVID-19; Z68.31 Body mass index [BMI] 31.0-31.9, adult; Z86.16 Personal history of COVID-19; Z95.0 Presence of cardiac pacemaker
CPT/HCPCS: 10880